=== PATIENT | male | born 1980 | race African-American/Black ===

== ENCOUNTER 2019-03-25 10:13 | Emergency (ER) | payer MEDICAID ==
[~2019-03-25] VITALS: Ht 175.3 cm; Wt 63.5 kg
[2019-03-25 10:20] VITALS: BP 108/69
[2019-03-25] MEDS ORDERED: HYDROcodone-ACET 10/325MG TAB PO ONE (11:15)
[2019-03-25] MEDS ORDERED: KETOROLAC TROMETH 60MG/2ML VIAL IM ONE (11:15)
== END 2019-03-25 11:28 | disposition home or self-care (01) ==
LOC: ER 10:22
DX: G89.29 Other chronic pain (principal); M54.5 Low back pain
CPT/HCPCS: 72131; 96372; 99284; J1885